=== PATIENT | male | born 1955 | race Caucasian/White ===

== ENCOUNTER 2017-12-24 18:00 | Emergency (ER) | payer BC ==
[2017-12-24 18:11] VITALS: BP 146/82; PULSE 78; RESP 18; TEMP 98.8
[2017-12-24] MEDS ORDERED: DIPH,PERTUS(ACELL)TETVAC-LF 0.5 ML VIAL IM ONE (18:12)
[2017-12-24] MEDS ORDERED: LIDOCAINE 1% INJ 10MG/ML (20 ML MDV) SQ ONE (18:22)
--- NOTE | 2017-12-24 19:11 | ED ---
Wound/Laceration HPI - General Chief Complaint: Wound/Laceration Stated Complaint: leg lac Time Seen by Provider: 12/24/17 18:12 Source: patient Mode of arrival: wheelchair Limitations: no limitations - History of Present Illness Initial Comments: 62-year-old male presenting today for chief complaint of left calf laceration. Patient states about 20 minutes prior to presentation he was using a utility knife to cut a tile with hand slipped cutting his left medial calf. Pt denies the knife breaking off and states he does not think foreign body is possible. Patient thought that the laceration would need repair sutures and presented for evaluation. Patient denies any numbness, tingling, loss sensation, muscle weakness, decreased range of motion following injury. Patient does admit to a burning sensation at the site of the laceration. Patient is unsure of his last tetanus. Patient denies any injury to any other extremity. Remainder of ROS negative, patient denies any recent fever, chills, shortness of breath, chest pain, back pain, abdominal pain, nausea or vomiting, numbness or tingling, dysuria or hematuria, constipation or diarrhea, headaches or visual changes, or any other complaints. Upon arrival, there is no active bleeding. Patient appears well, vital signs within acceptable limits. - Related Data Allergies Allergy/AdvReac Type Severity Reaction Status Date / Time Sulfa (Sulfonamide Allergy Rash/Hives Verified 12/24/17 18:09 Antibiotics) Review of Systems ROS Statement: Those systems with pertinent positive or pertinent negative responses have been documented in the HPI. ROS Other: All systems not noted in ROS Statement are negative. Constitutional: Denies: fever, chills, night sweats Eyes: Denies: eye pain ENT: Denies: ear pain, throat pain Respiratory: Denies: cough, dyspnea, wheezes, hemoptysis, stridor Cardiovascular: Denies: chest pain, palpitations, dyspnea on exertion Endocrine: Denies: fatigue Gastrointestinal: Denies: abdominal pain, nausea, vomiting, diarrhea, constipation Genitourinary: Denies: urgency, dysuria, frequency Skin: Reports: as per HPI (600 laceration to the left calf medial/posterior aspect). Denies: rash Neurological: Denies: numbness, paresthesias, confusion, abnormal gait Past Medical History Past Medical History: Hypertension Additional Past Medical History / Comment(s): kidney stones History of Any Multi-Drug Resistant Organisms: None Reported Past Surgical History: Cholecystectomy, Hernia Repair Past Psychological History: No Psychological Hx Reported Smoking Status: Never smoker Past Alcohol Use History: None Reported Past Drug Use History: None Reported General Exam - General Exam Comments Initial Comments: General: The patient is awake and alert, in no distress, and does not appear acutely ill. Eye: Pupils are equal, round and reactive to light, extra-ocular movements are intact. No nystagmus. There is normal conjunctiva bilaterally. No signs of icterus. Ears, nose, mouth and throat: There are moist mucous membranes and no oral lesions. Neck: The neck is supple, there is no tenderness or JVD. Cardiovascular: There is a regular rate and rhythm. No murmur, rub or gallop is appreciated. Respiratory: Lungs are clear to auscultation, respirations are non-labored, breath sounds are equal. No wheezes, stridor, rales, or rhonchi. Musculoskeletal: Normal ROM at the knee and ankle of the left leg equal and comparison with the right, no tenderness. Strength 5/5. Sensation intact. Pulses equal bilaterally 2+. Neurological: A&O x 3. CN II-XII intact, There are no obvious motor or sensory deficits. Coordination appears grossly intact. Speech is normal. Skin: Skin is warm and dry and no rashes. 6 cm linear laceration to the left calf (medial/posterior aspect), no exppsure of tendons/muscle sheath. No evidence of foreign body Psychiatric: Cooperative, appropriate mood & affect, normal judgment. Limitations: no limitations Course Vital Signs 12/24/17 18:09 Temperature 98.8 F Pulse Rate 78 Respiratory 18 Rate Blood Pressure 146/82 O2 Sat by Pulse 99 Oximetry Procedures - Laceration Laceration #1 Consent Obtained: verbal consent Time Out Performed: Yes Indication: laceration Site: lower extremity (let lower leg, medial/posterior aspect of the left calf) Size (cm): 6 Description: linear Depth: simple, single layer Anesthetic Used: lidocaine 1% Anesthesia Technique: local infiltration Amount (mls): 10 Pre-repair: wound explored, irrigated extensively (1L sterile water under pressure), deep structures intact Type of Sutures: nylon Size of Sutures: 4-0 Number of Sutures: 9 Technique: simple, interrupted Patient Tolerated Procedure: well, no complications Additional Comments: No obvious deeper injury, no exposure of tendon or muscle sheath. Medical Decision Making - Medical Decision Making simple 6cm linear laceration of the left medial/posterior aspect of calf. After extensive irrigation using sterile procedure. 9 nylon 4.0 sutures were used. There is no evidence for obvious tendinous injury or FB, however it was discussed in detail with patient that that could be a possibility given the mechanism of injury. Patient was instructed to follow-up with orthopedic surgery for any signs of weakness or limited range of motion and mobility. After the wound edges were approximated the wound was covered in bacitracin, sterile bandage. Return parameters discussed at length including return for suture removal in 7-10 days. Patient verbalized understanding. Signs and symptoms of infection were discussed at length, patient verbalized understanding. At this time feel patient is stable for discharge with primary care follow-up as well as orthopedic surgery follow-up for any mobility changes. Patient discharged in stable condition after discussing the case with Dr. Hernandez. Disposition Clinical Impression: Laceration of left lower leg Disposition: HOME SELF-CARE Condition: Good Instructions: Care For Your Stitches (ED), Laceration (ED) Additional Instructions: Please use medication as discussed. Please follow-up with family doctor in the next 2 days. Please return for suture removal in the next 7-10 days. Any issues with mobility need to evaluated by orthopedic surgeon immediately. Please return to emergency room if the symptoms increase or worsen or for any other concerns, as discussed. Is patient prescribed a controlled substance at d/c from ED?: No Referrals: Christiana Quintanilla DO [Primary Care Provider] - 1-2 days Vaishali Maher PAC [PHYSICIAN EXECUTIVE CHEF ASSISTANT] - 1-2 days Time of Disposition: 19:10
== END 2017-12-24 19:43 | disposition home or self-care (01) ==
LOC: EC 18:00
DX: S81.812A Laceration without foreign body, left lower leg, initial encounter (principal); Z88.2 Allergy status to sulfonamides; Z23 Encounter for immunization; W26.0XXA Contact with knife, initial encounter; Y93.89 Activity, other specified
CPT/HCPCS: 90715; 99282; 12002; 90471; J2001